=== PATIENT | female | born 1960 | race Caucasian/White ===

== ENCOUNTER 2019-05-26 10:06 | Emergency (ER) | payer OTHER, SELFPAY ==
[2019-05-26 10:46] VITALS: BP 148/81; PULSE 69; RESP 20; TEMP 37.6; O2SAT 100
--- NOTE | 2019-05-26 10:57 | ED.GENADULT ---
HPI - General Adult General Chief complaint: Eye Problems Stated complaint: L/eye injury Time Seen by Provider: 05/26/19 10:57 Source: patient and RN notes reviewed Mode of arrival: ambulatory Limitations: no limitations History of Present Illness HPI narrative: 58-year-old female presents with complaints of sensation of foreign body in left eye with redness, drainage, irritation, and blurred vision for 1 day. Nolvia says she was outside in the garden yesterday (approximately at 14:00 on 05/25/19) and believes she may have stuck herself in the eye with a stick. No treatment. No change in vision. Wears glasses. Symptoms increased over night with foreign body sensation and redness. No exacerbating factors. Relieving factors is closing eyes. Denies double vision, pain of eye with movement. Denies fever or chills. Some parts of this dictation were generated by voice recognition software and may contain typographical and/or grammatical inaccuracies. Severity scale (1-10): 9 Related Data Home Medications Medication Instructions Recorded Confirmed No Home Medications 05/26/19 05/26/19 Allergies Allergy/AdvReac Type Severity Reaction Status Date / Time No Known Allergies Allergy Verified 05/26/19 10:45 Review of Systems Review of Systems: Narrative: CONSTITUTIONAL: Denies fever, chills, sweats. EYES: Denies visual changes. Complains of LT eye redness and foreign body sensation. Denies discharge. ENT: Denies rhinorrhea, congestion, sore throat, otalgia. CARDIOVASCULAR: Denies chest pain, palpitations, edema. RESPIRATORY: Denies dyspnea, wheezing, cough. GASTROINTESTINAL: Denies abdominal pain, nausea, vomiting, diarrhea. GENITOURINARY: Denies dysuria, hematuria, abnormal discharge. SKIN: Denies rash or itching. MUSCULOSKELETAL: Denies acute back pain, joint pain, or myalgia. NEUROLOGIC: Denies numbness or focal weakness. PSYCHIATRIC: Denies anxiety or depression. All systems reviewed & are unremarkable except as noted in HPI and below. [facility] Past Medical History Medical History (Updated 05/27/19 @ 00:01 by Kolton Henley) Endometriosis Surgical History Surgical History (Updated 05/26/19 @ 11:04 by KARL Root) History of carpal tunnel surgery Left wrist History of exploratory laparotomy History of left salpingo-oophorectomy Family History Family History Father Hypertension Family history of heart disease in male family member before age 55 Mother Hypertension Family history of hypothyroidism Patient's mother is , Onset Age: 92 Sibling Hypertension Family history of elevated blood lipids Patient's sister is in good health Patient's brother is in good health Other Acute myocardial infarction Family history of cardiovascular disease Social History Social History (Updated 05/26/19 @ 11:04 by KARL Root) Smoking status: Never smoker Second hand tobacco smoke exposure: No Alcohol intake: current Substance use: never Living arrangements: with family Occupation/Education: occupation Gender identity (if verbalized by the patient): Female Comments At time of signature, I have reviewed and agree with nursing past medical, surgical, social, and family history. Please see nursing chart for further information. There is no relevant family history pertinent to the presenting complaint. Exam Narrative: Exam Narrative: GENERAL: This is a well-nourished, well-developed patient, in no apparent distress. HEAD: normocephalic, atraumatic. EYES: PERRL. Sclera clear/white to RT eye only. LT eye sclera roly and clear with clear watery drainage, no swelling, no tenderness on palpation or erythema. Vision is grossly intact. RT eye 20/20, LT 20/30 with glasses. No foreign body. Noted a corneal abrasion at 8 o'clock with topical anesthetic using Tetracaine and Fluorecein stain exam of
== END 2019-05-26 11:36 | disposition home or self-care (01) ==
PROVIDERS: Emergency Provider Nurse Practitioner Family; PCP Family Medicine
DX: S05.01XA Injury of conjunctiva and corneal abrasion without foreign body, right eye, initial encounter (principal); X58.XXXA Exposure to other specified factors, initial encounter
CPT/HCPCS: 99213; A9270; G0463

== ENCOUNTER 2019-06-10 08:43 | Outpatient (CLI) | payer OTHER, SELFPAY ==
[2019-06-10 09:22] LABS: Basophils Absolute Auto 0.1 K/mm3 (0.0-0.1); Basophils Percent Auto 0.9 % (0.2-1.2); Eosinophils Absolute Auto 0.2 K/mm3 (0-0.3); Eosinophils Percent Auto 3.7 % (0-4.4); Hematocrit 41.1 % (37.0-47.0); Hemoglobin 13.7 g/dL (12.0-15.0); Immature Granulocyte Absolute 0.01 K/mm3 (0.00-0.031); Immature Granulocyte Percent A 0.2 % (0-0.5); Lymphocytes Absolute Auto 2.36 K/mm3 (0.9-3.2); Lymphocytes Percent Auto 43.3 % (18.3-44.2); Mean Corpuscular HGB Conc 33.3 g/dl (32-36); Mean Corpuscular Hemoglobin 30.2 pg (26-34); Mean Corpuscular Volume 90.5 fl (80-100); Mean Platelet Volume 9.7 fl (7.4-10.4); Monocytes Absolute Auto 0.4 K/mm3 (0.1-0.6); Monocytes Percent Auto 7.7 % (2.6-8.5); Neutrophils Absolute Auto 2.4 K/mm3 (1.3-6.7); Neutrophils Percent Auto 44.2 % (45.5-73.1); Platelet Count Result 218 k/mm3 (150-375); Red Blood Count 4.54 M/mm3 (4.2-5.4); Red Cell Distribution Width 13.1 % (11.5-14.5); White Blood Count 5.5 K/mm3 (4.5-10.0)
[2019-06-10 09:34] LABS: Alanine Aminotransferase 25 U/L (4-35); Alkaline Phosphatase 77 U/L (38-126); Aspartate Amino Transferase 32 U/L (14-36); Bilirubin,Total 1.2 mg/dL (0.2-1.3); Blood Urea Nitrogen 13 mg/dL (7-17); Calcium 9.1 mg/dL (8.4-10.2); Carbon Dioxide 30 mmol/L (22-30); Chloride 104 mmol/L (98-107); Cholesterol 187 mg/dL (0-200); Estimated Glomerular Filt Rate > 60; Glucose 91 mg/dL (65-105); HDL Direct 54 mg/dL; Potassium 4.2 mmol/L (3.4-5.0); Sodium 141 mmol/L (137-145); Triglycerides 70 mg/dL (<150)
[2019-06-10 09:45] LABS: LDL Cholesterol Direct 106 mg/dL
== END 2019-06-10 08:44 | disposition home or self-care (01) ==
PROVIDERS: PCP Family Medicine; Visit Provider Family Medicine
DX: I10 Essential (primary) hypertension (principal); Z13.220 Encounter for screening for lipoid disorders
CPT/HCPCS: 36415; 80053; 80061; 85025

== ENCOUNTER 2019-07-02 08:50 | Outpatient (CLI) | payer OTHER, SELFPAY ==
--- NOTE | ~2019-07-02 | MM_ITS ---
EXAMINATION: MM screening kristie BI w mary HISTORY: Screening mammogram TECHNIQUE: Craniocaudal and mediolateral oblique 3-D tomosynthesis images were obtained and synthetic 2-D images were generated. CAD analysis was submitted and interpreted. COMPARISON: 03/21/2017, 06/10/2015 bilateral digital screening mammogram examinations BREAST PARENCHYMAL COMPOSITION: There are scattered areas of fibroglandular density. FINDINGS: There is no evidence of suspicious mass, calcification, or architectural distortion to sugg est malignancy in either breast. There has been no suspicious interval change. IMPRESSION: 1. No mammographic evidence of malignancy. 2. Recommend routine screening mammography in one year. BI-RADS Category 1: Negative Reviewed, dictated and finalized at location A.
== END 2019-07-02 08:51 | disposition home or self-care (01) ==
LOC: ANHIMG 08:53
PROVIDERS: PCP Family Medicine; Visit Provider Family Medicine
DX: Z12.31 Encounter for screening mammogram for malignant neoplasm of breast (principal)
CPT/HCPCS: 77063; 77067

== ENCOUNTER 2020-03-02 12:27 | Outpatient (CLI) | payer OTHER, SELFPAY ==
--- NOTE | ~2020-03-02 | DEXA_ITS ---
Bone Density Report Name: Nolvia Stone Age: 59 Sex: Female Ethnicity: White Date of : 1960 Indication: osteopenia; postmenopausal Referring Provider: José Luis, Aura Study: Bone densitometry was performed. Exam Date: March 02, 2020 Accession number: [id number] Bone Density: Region BMD T-score Z-score Classification AP Spine (L1-L4) 0.767 -2.5 -1.1 Osteoporosis Femoral Neck (Left) 0.558 -2.6 -1.3 Osteoporosis Total Hip (Left) 0.693 -2.0 -1.1 Osteopenia Total Hip Bilateral Avg 0.714 -1.9 -1.0 Osteopenia Femoral Neck (Right) 0.576 -2.5 -1.2 Osteoporosis Total Hip (Right) 0.733 -1.7 -0.8 Osteopenia World Health Organization criteria for BMD impression classify patients as: Normal (T-score at or above -1.0), Osteopenia (T-score between -1.0 and -2.5), or Osteoporosis (T-score at or below -2.5). 10-year Fracture Risk: FRAX not reported because: Some T-score for Spine Total or Hip Total or Femoral Neck at or below -2.5 Previous Exams: Region Exam Age BMD T-score BMD Change BMD Change Date g/cm2 vs Baseline vs Previous AP Spine(L1-L4) 03/02/2020 59 0.767 -2.5 -0.063(-7.6%)* -0.063(-7.6%)* 06/10/2015 54 0.830 -2.0 Total Hip(Left) 03/02/2020 59 0.693 -2.0 -0.011(-1.6%) -0.011(-1.6%) 06/10/2015 54 0.704 -1.9 Total Hip(Right) 03/02/2020 59 0.733 -1.7 0.037(5.3%)* 0.037(5.3%)* 06/10/2015 54 0.696 -2.0 *Denotes significance at 95% confidence level, LSC for AP Spine = 0.022 g/cm2, LSC for Total Hip = 0.027 g/cm2 Clinical Information Provided by Patient: Has used the following medications: Vitamin D, Calcium Patient maximum height was 67 Menopause Age: 51 Drinks caffeinated beverages Onset of menses at age 13 Number of children 0 Impression: The patient has osteoporosis, based on the Left Femoral Neck T-score. The BMD for the AP Spine(L1-L4) decreased, changing by -7.6% since the last DXA exam. Discussion: INCREASED RISK OF FRACTURE. BONE DENSITY IS UNDESIRABLY LOW AT ONE OR MORE SKELETAL SITES, CONSISTENT WITH POSTMENOPAUSAL OSTEOPOROSIS. This patient's lowest T-score meets the World Health Organization's (WHO) criteria for osteoporosis at one or more sites (T-score -2.5 or below). In untreated patients, the risk of osteoporotic fracture increases approximately two-fold for each 1.0 SD decrease in T-score. Low bone density is not the only risk factor for fracture; also consider factors such as patient's age, frailty
[2020-08-26 16:01] LABS: Urine Cotinine NEGATIVE
== END 2020-03-02 12:28 | disposition home or self-care (01) ==
LOC: ANHIMG 12:29
PROVIDERS: Visit Provider Nurse Practitioner
DX: Z13.820 Encounter for screening for osteoporosis (principal); M81.0 Age-related osteoporosis without current pathological fracture; M85.852 Other specified disorders of bone density and structure, left thigh
CPT/HCPCS: 77080

== ENCOUNTER 2021-06-04 07:29 | Outpatient (CLI) | payer OTHER, SELFPAY ==
[2021-06-04 08:39] LABS: Basophils Absolute Auto 0.1 K/mm3 (0.0-0.1); Basophils Percent Auto 1.3 % (0.2-1.2); Eosinophils Absolute Auto 0.2 K/mm3 (0-0.3); Eosinophils Percent Auto 4.2 % (0-4.4); Hematocrit 41.2 % (37.0-47.0); Hemoglobin 14.1 g/dL (12.0-15.0); Immature Granulocyte Absolute 0.01 K/mm3 (0.00-0.031); Immature Granulocyte Percent A 0.2 % (0-0.5); Lymphocytes Percent Auto 41.7 % (18.3-44.2); Mean Corpuscular HGB Conc 34.2 g/dl (32-36); Mean Corpuscular Hemoglobin 30.9 pg (26-34); Mean Corpuscular Volume 90.2 fl (80-100); Mean Platelet Volume 9.9 fl (7.4-10.4); Monocytes Absolute Auto 0.3 K/mm3 (0.1-0.6); Monocytes Percent Auto 6.5 % (2.6-8.5); Neutrophils Absolute Auto 2.2 K/mm3 (1.3-6.7); Neutrophils Percent Auto 46.1 % (45.5-73.1); Platelet Count Result 243 k/mm3 (150-375); Red Blood Count 4.57 M/mm3 (4.2-5.4); Red Cell Distribution Width 12.7 % (11.5-14.5); White Blood Count 4.8 K/mm3 (4.5-10.0)
[2021-06-04 08:52] LABS: Alanine Aminotransferase 29 U/L (4-35); Albumin Level 4.3 g/dL (3.5-5.1); Alkaline Phosphatase 83 U/L (38-126); Anion Gap 8 mmol/L (8-16); Aspartate Amino Transferase 37 U/L (14-36); Bilirubin,Total 1.1 mg/dL (0.2-1.3); Blood Urea Nitrogen 12 mg/dL (7-17); Calcium 8.8 mg/dL (8.4-10.2); Carbon Dioxide 25 mmol/L (22-30); Chloride 106 mmol/L (98-107); Cholesterol 220 mg/dL (0-200); Estimated Glomerular Filt Rate > 60; Glucose 98 mg/dL (65-110); HDL Direct 56 mg/dL; Potassium 3.8 mmol/L (3.4-5.0); Sodium 139 mmol/L (137-145); Triglycerides 79 mg/dL (<150)
[2021-06-04 09:02] LABS: LDL Cholesterol Direct 112 mg/dL
[2021-06-04 10:04] LABS: Hemoglobin A1C 5.2 % (<5.7)
== END 2021-06-04 07:30 | disposition home or self-care (01) ==
PROVIDERS: PCP Family Medicine; Visit Provider Nurse Practitioner Gerontology
DX: R03.0 Elevated blood-pressure reading, without diagnosis of hypertension (principal); Z00.01 Encounter for general adult medical examination with abnormal findings
CPT/HCPCS: 36415; 80053; 80061; 83036; 84443; 85025

== ENCOUNTER 2021-07-11 08:56 | Outpatient (CLI) | payer OTHER, SELFPAY ==
--- NOTE | ~2021-07-11 | MM_ITS ---
EXAMINATION: MM screening kristie BI w mary HISTORY: Screening mammogram TECHNIQUE: Craniocaudal and mediolateral oblique 3-D tomosynthesis images were obtained and synthetic 2-D images were generated. CAD analysis was submitted and interpreted. COMPARISON: No prior mammogram is available for comparison at this institution. BREAST PARENCHYMAL COMPOSITION: There are scattered areas of fibroglandular density. FINDINGS: There is no evidence of suspicious mass, calcification, or architectural distortion to sugg est malignancy in either breast. There has been no suspicious interval change. IMPRESSION: 1. No mammographic evidence of malignancy. 2. Recommend routine screening mammography in one year. BI-RADS Category 1: Negative Reviewed, dictated and finalized at location A.
== END 2021-07-11 08:57 | disposition home or self-care (01) ==
LOC: ANHIMG 08:57
PROVIDERS: PCP Family Medicine; Visit Provider Nurse Practitioner Gerontology
DX: Z12.31 Encounter for screening mammogram for malignant neoplasm of breast (principal)
CPT/HCPCS: 77063; 77067

== ENCOUNTER 2021-07-21 15:51 | Outpatient (CLI) | payer OTHER, SELFPAY ==
[2021-07-21 18:39] LABS: Alanine Aminotransferase 26 U/L (4-35); Aspartate Amino Transferase 48 U/L (14-36)
== END 2021-07-21 15:52 | disposition home or self-care (01) ==
LOC: ANHLAB 15:52
PROVIDERS: PCP Family Medicine; Visit Provider Nurse Practitioner Gerontology
DX: R74.8 Abnormal levels of other serum enzymes (principal)
CPT/HCPCS: 36415; 84450; 84460

== ENCOUNTER 2021-08-02 16:37 | Outpatient (CLI) | payer OTHER, SELFPAY ==
[2021-08-02 17:08] LABS: Alanine Aminotransferase 23 U/L (6-35); Albumin Level 4.2 g/dL (3.5-5.1); Alkaline Phosphatase 86 U/L (38-126); Aspartate Amino Transferase 35 U/L (14-36); Bilirubin,Total 1.2 mg/dL (0.2-1.3)
[2021-08-02 18:52] LABS: Hepatitis B Surface Antigen Negative (Negative)
[2021-08-02 18:58] LABS: HAV RESULT Negative (Negative); Hepatitis B Core IgM Result Negative (Negative)
[2021-08-02 19:09] LABS: Hepatitis C Virus Antibody Negative (Negative)
== END 2021-08-02 16:38 | disposition home or self-care (01) ==
LOC: ANHLAB 16:38
PROVIDERS: PCP Family Medicine; Visit Provider Nurse Practitioner Gerontology
DX: R74.8 Abnormal levels of other serum enzymes (principal)
CPT/HCPCS: 36415; 80074; 80076

== ENCOUNTER 2021-11-21 10:58 | Outpatient (CLI) | payer OTHER, SELFPAY ==
--- NOTE | ~2021-11-21 | XR_ITS ---
EXAM: XR lumbar spine min 4V DATE: 11/21/2021 11:26 HISTORY: M47.816 - Spondylosis without myelopathy or radiculopathy... . COMPARISON: None available. FINDINGS: Hypoplastic ribs at T12. 5 nonrib-bearing lumbar-type vertebral bodies. Decreased mineraliz ation. No pars defect. Pedicles intact. Normal vertebral body alignment. Mild concave endplate deform ities. Multilevel disc space narrowing, severe at L4-5 and L5-S1. Multilevel mild-moderate facet scle rosis and hypertrophy. No fracture or dislocation. IMPRESSION: Osteopenia/osteoporosis. Multilevel degenerative disc disease, severe in the lower lumbar spine. Reviewed, dictated and finalized at location K. IMPRESSION: Osteopenia/osteoporosis. Multilevel degenerative disc disease, ravinder re in the lower lumbar spine.
== END 2021-11-21 10:59 | disposition home or self-care (01) ==
PROVIDERS: PCP Family Medicine; Visit Provider Nurse Practitioner Gerontology
DX: M47.816 Spondylosis without myelopathy or radiculopathy, lumbar region (principal); M85.88 Other specified disorders of bone density and structure, other site; M81.0 Age-related osteoporosis without current pathological fracture; M51.36 Other intervertebral disc degeneration, lumbar region
CPT/HCPCS: 72110

== ENCOUNTER 2021-12-25 12:19 | Outpatient (CLI) | payer OTHER, SELFPAY ==
--- NOTE | ~2021-12-25 | MR_ITS ---
EXAMINATION: MR lumbar spine wo con DATE: 12/25/2021 13:12 INDICATION: Back pain. Leg numbness. TECHNIQUE: Magnetic resonance imaging (MRI) of the lumbar spine was performed without intravenous con trast. Sequences included sagittal T2-weighted FSE, sagittal T2-weighted FS FSE, sagittal T1-weighted FSE, and axial T2-weighted FSE. COMPARISON: Lumbar spine MRI 12/23/2017 FINDINGS: There is 11 degrees dextroscoliosis of lumbar spine. Vertebral body heights are normal. The re is moderately decreased disc height at T12-L1, mildly decreased disc height at L1-L2 and L2-L3, an d severely decreased disc height from L3-L4 through L5-S1 with endplate remodeling. The distal spinal cord signal intensity is normal. The conus medullaris is at L1. Partially visualized is a cyst in ri ght adnexa measuring 4.7 cm. The following disc levels are specifically discussed: T12-L1: The disc is bulging. There is no facet joint osteoarthritis. There is no neural foraminal dahiana nosis. There is mild central canal stenosis. L1-L2: The disc is bulging and has an annular fissure. There is mild bilateral facet joint osteoarthr itis. There is no neural foraminal stenosis. There is mild central canal stenosis. L2-L3: The disc is bulging and has an annular fissure. There is mild bilateral facet joint osteoarthr itis. There is mild bilateral neural foraminal stenosis. There is mild central canal stenosis. L3-L4: The disc is bulging and has an annular fissure. There is mild bilateral facet joint osteoarthr itis. There is mild bilateral neural foraminal stenosis. There is mild central canal stenosis. L4-L5: The disc is bulging and has an annular fissure. There is severe bilateral facet joint osteoart hritis. There is mild right and moderate left neural foraminal stenosis. There is mild central canal stenosis. L5-S1: The disc is bulging and has an annular fissure. There is mild bilateral facet joint osteoarthr itis. There is moderate right and mild left neural foraminal stenosis. There is mild central canal st enosis. IMPRESSION: 1. Severe lumbar spondylosis, stable from 12/23/2017. 2. Partially visualized cyst in right adnexa measuring 4.7 cm, probably benign. Pelvis ultrasound is recommended. Reviewed, dictated and finalized at location B.
== END 2021-12-25 12:20 | disposition home or self-care (01) ==
PROVIDERS: PCP Family Medicine; Visit Provider Nurse Practitioner Gerontology
DX: M47.816 Spondylosis without myelopathy or radiculopathy, lumbar region (principal)
CPT/HCPCS: 72148

== ENCOUNTER 2022-02-02 12:30 | Outpatient (RCR) | payer OTHER, SELFPAY ==
--- NOTE | 2022-01-03 10:47 | PTOPEVAL1 ---
Assessment and note entered by Shirlene Julien, PT Evaluation Information Assessment Status Evaluation Diagnosis chronic back pain, current L radiculopathy Onset 08/2021 Subjective Information was doing really well with going to gym after addressing low back in 2015, with jer was unable to go to the gym. Recently did steroids and this didn't seem to change anything. Has started neurontin. Reported Pain Level Pain Score 5: Self Report Assessment PT Clinical Summary Pt presents w/ c/o back pain and pain into LLE. Chart review shows hx of L5 disc issue pt reports did steroid shots, medication, and therapy for this and was able to get pain to a tolerable level. Was able to maintain this level of function via working out independently. Reports with Jer , gyms shut down and she was unable to maintain her regement. Notes pain worsened most over the last 4 months. Evaluation shows very ataxic gait with path weaving, bilat foot drop, inconsistent bubba. Also shows severely decreased lumbar flexion, moderate scoliosis with left lateral shift, R pelvic upslip (severe), severely reduced strength in lumbopelvic musculature including glute med, max, internal and external rotators, and transverse abdominal muscles. Pt will benefit from physical therapy to address alignment of pelvis, provide improved foundation for lumbar spine, improve strength of core musculature and thus improve stability of lumbar spine, reducing pain and improving function without pain. Plan of Care Interventions Aquatic Therapy,Electrical Stimulation,Gait Training,Hot Pack/Cold Pack,Manual Therapy,Neuro Re-education,Therapeutic Activities,Therapeutic Exercise,Other Other Interventions Bracing PT Services Indicated Yes Treatment Frequency and 1-2x weekly x 4 weeks Duration These treatments will address the objective and functional deficits as defined above. The patient will be advanced safely and appropriately in order for the patient to progress towards his/her prior level of function. Additional exercises will be introduced and as well as a comprehensive home exercise program upon discharge, if needed, ?to ensure carryover of functional gains achieved in the clinic. This treatment plan has been reviewed and agreement upon by the patient.
--- NOTE | 2022-02-02 13:21 | PTOPDC ---
Assessment and note entered by Shirlene Julien, PT Assessment Status Discharge Diagnosis chronic back pain, current L radiculopathy Onset 08/2021 Subjective Information Pt reports she has spoken with someone about receiving steroid shots for her back pain in approx a month. Her pain she presented to therapy for has not improved much. Reported Pain Level Pain Score 5: Self Report Assessment PT Clinical Summary Pt has attended therapy consistently for back pain and radicular symptoms. She has made improvement in her overall strength, her lumbar flexion range of motion, and improved coordination with gait. However she has not improved in her pain to a significant degree. She continues to demonstrate a pelvic upslip that has not responded to therapeutic intervention and has made an appointment to receive steroid shots. Unfortunately, pt is being discharged from therapy services due to lack of progress in her pain.
== END 2022-02-02 15:19 | disposition home or self-care (01) ==
LOC: ANHPT 12:30
PROVIDERS: PCP Family Medicine; Visit Provider Nurse Practitioner Gerontology
DX: M47.816 Spondylosis without myelopathy or radiculopathy, lumbar region (principal)
CPT/HCPCS: 97014; 97110; 97140; 97162; 97530; G0283

== ENCOUNTER 2022-03-09 16:44 | Outpatient (CLI) | payer OTHER, SELFPAY ==
--- NOTE | ~2022-03-09 | DEXA_ITS ---
Bone Density Report Name: SHYAM IRIZARRY Age: 61 Sex: Female Ethnicity: White Date of : 1960 Indication: postmenopausal; screening for osteoporosis; height loss; Referring Provider: ROWDY CRUZ Study: Bone densitometry was performed. Exam Date: March 09, 2022 Accession number: [id number] Bone Density: Region BMD T-score Z-score Classification AP Spine(L1-L4) 0.850 -1.8 -0.2 Osteopenia Femoral Neck (Left) 0.546 -2.7 -1.3 Osteoporosis Total Hip (Left) 0.663 -2.3 -1.2 Osteopenia Femoral Neck (Right) 0.553 -2.7 -1.3 Osteoporosis Total Hip (Right) 0.676 -2.2 -1.1 Osteopenia Total Hip Mean 0.669 -2.3 -1.2 Osteopenia World Health Organization criteria for BMD impression classify patients as: Normal (T-score at or above -1.0), Osteopenia (T-score between -1.0 and -2.5), or Osteoporosis (T-score at or below -2.5). 10-year Fracture Risk: FRAX not reported because: Some T-score for Spine Total or Hip Total or Femoral Neck at or below -2.5 Clinical Information Provided by Patient: Has used the following medications: Vitamin D, Calcium Patient maximum height was 67 Menopause Age: 51 No regular weight bearing exercise Drinks caffeinated beverages Onset of menses at age 13 Number of children 0 Impression: The patient has osteoporosis, based on the Left Femoral Neck T-score. Discussion: INCREASED RISK OF FRACTURE. BONE DENSITY IS UNDESIRABLY LOW AT ONE OR MORE SKELETAL SITES, CONSISTENT WITH POSTMENOPAUSAL OSTEOPOROSIS. This patient's lowest T-score meets the World Health Organization's (WHO) criteria for osteoporosis at one or more sites (T-score -2.5 or below). In untreated patients, the risk of osteoporotic fracture increases approximately two-fold for each 1.0 SD decrease in T-score. Low bone density is not the only risk factor for fracture; also consider factors such as patient's age, frailty or poor health, risk of falling, risk of injury, previous osteoporotic fracture, family history of osteoporosis, cigarette smoking, low body weight, etc. Not everyone with low bone mineral density has osteoporosis; osteomalacia and other metabolic bone disorders should also be considered. Patients who have osteoporosis should be evaluated for specific diseases and conditions (secondary causes) that may cause or contribute to bone loss. The [place] [employer]ocrinologists (AACE) and National Osteoporosis Foundation (NOF) recommend pharmacologic intervention for all postmenopausal women whose T-score is in this range. The patient should follow a healthful lifestyle (good nutrition with adequate calcium and vitamin D, and appropriate weight-bearing exercise). Follow-Up: Consider a repeat BMD and Vertebral Fracture Assessment (VFA) exam in 2 years or sooner if medically necess
== END 2022-03-09 16:45 | disposition home or self-care (01) ==
PROVIDERS: PCP Family Medicine; Visit Provider Nurse Practitioner Gerontology
DX: Z78.0 Asymptomatic menopausal state (principal); M85.89 Other specified disorders of bone density and structure, multiple sites; M81.0 Age-related osteoporosis without current pathological fracture
CPT/HCPCS: 77080

== ENCOUNTER 2022-08-08 08:23 | Outpatient (CLI) | payer OTHER, SELFPAY ==
[2022-08-08 09:12] LABS: Basophils Absolute Auto 0.1 K/mm3 (0.0-0.1); Basophils Percent Auto 0.9 % (0.2-1.2); Eosinophils Absolute Auto 0.1 K/mm3 (0-0.3); Eosinophils Percent Auto 2.6 % (0-4.4); Hemoglobin 14.4 g/dL (12.0-15.0); Immature Granulocyte Absolute 0.01 K/mm3 (0.00-0.031); Immature Granulocyte Percent A 0.2 % (0-0.5); Lymphocytes Absolute Auto 1.72 K/mm3 (0.9-3.2); Lymphocytes Percent Auto 31.4 % (18.3-44.2); Mean Corpuscular HGB Conc 32.7 g/dl (32-36); Mean Corpuscular Hemoglobin 30.5 pg (26-34); Mean Corpuscular Volume 93.2 fl (80-100); Mean Platelet Volume 9.9 fl (7.4-10.4); Monocytes Absolute Auto 0.4 K/mm3 (0.1-0.6); Monocytes Percent Auto 6.6 % (2.6-8.5); Neutrophils Absolute Auto 3.2 K/mm3 (1.3-6.7); Neutrophils Percent Auto 58.3 % (45.5-73.1); Platelet Count Result 244 k/mm3 (150-375); Red Blood Count 4.72 M/mm3 (4.2-5.4); White Blood Count 5.5 K/mm3 (4.5-10.0)
[2022-08-08 09:21] LABS: Alanine Aminotransferase 27 U/L (6-35); Albumin Level 4.4 g/dL (3.5-5.1); Alkaline Phosphatase 87 U/L (38-126); Anion Gap 4 mmol/L (8-16); Aspartate Amino Transferase 33 U/L (14-36); Bilirubin,Total 1.3 mg/dL (0.2-1.3); Blood Urea Nitrogen 11 mg/dL (7-17); Calcium 8.9 mg/dL (8.4-10.2); Carbon Dioxide 33 mmol/L (22-30); Chloride 103 mmol/L (98-107); Cholesterol 225 mg/dL (0-200); Estimated Glomerular Filt Rate > 60; Glucose 88 mg/dL (65-110); HDL Direct 71 mg/dL; Potassium 4.1 mmol/L (3.4-5.0); Sodium 140 mmol/L (137-145); Triglycerides 64 mg/dL (<150)
[2022-08-08 09:32] LABS: LDL Cholesterol Direct 121 mg/dL
[2022-08-12 11:05] LABS: Vitamin D 1,25 (OH)2 Total 48 pg/mL (18-72); Vitamin D2 1,25 (OH)2 <8 pg/mL; Vitamin D3 1,25 (OH)2 48 pg/mL
== END 2022-08-08 08:24 | disposition home or self-care (01) ==
LOC: ANHLAB 08:24
PROVIDERS: PCP Family Medicine; Visit Provider Nurse Practitioner Gerontology
DX: Z00.01 Encounter for general adult medical examination with abnormal findings (principal); E55.9 Vitamin D deficiency, unspecified
CPT/HCPCS: 36415; 80053; 80061; 82652; 85025

== ENCOUNTER 2022-09-12 15:08 | Outpatient (CLI) | payer OTHER, SELFPAY ==
--- NOTE | 2022-09-12 15:15 | ECHO_ITS ---
Patient Info Name: Nolvia Stone Age: 61 years : 1960 Gender: Female Ht: 66 in Wt: 135 lbs BSA: 1.69 m2 HR: 75 bpm BP: 150 / 96 mmHg Heart Rhythm: Sinus Rhythm Technical Quality: Good Exam Date: 09/12/2022 3:36 PM Exam Location: [facility] Pulmonary Patient Status: Outpatient Admit Date: 09/12/2022 Staff Ordering Physician: Smitha Rebollar NP Attending Provider: Smitha Rebollar NP Referring Physician: Smooth MCLAIN; Exam Type: CA echo doppler color flow Study Info Complete two-dimensional, color flow and Doppler transthoracic echocardiogram is performed. Summary 1. Complete two-dimensional, color flow and Doppler transthoracic echocardiogram is performed. 2. Left ventricular chamber dimension is normal. 3. Left ventricular systolic function is normal, estimated at 60-65%. 4. The left ventricular diastolic function is grade I diastolic dysfunction. 5. E/e' 8 is minimally elevated. 6. No pulmonary hypertension, estimated pulmonary arterial systolic pressure is 14 mmHg. Left Ventricle E/e' 8 is minimally elevated. Left ventricular chamber dimension is normal. Left ventricular systolic function is normal, estimated at 60-65%. The left ventricular diastolic function is grade I diastolic dysfunction. Right Ventricle Right ventricular chamber dimension is normal. Right ventricular systolic function is normal. Left Atria Left atrial chamber dimension is normal. Right Atria Right atrial chamber dimension is normal. Aortic Valve The aortic valve is trileaflet. There is no aortic valve stenosis. There is no aortic valve regurgitation. Pulmonic Valve There is no pulmonic regurgitation. Mitral Valve There is no mitral valve stenosis. There is no mitral valve regurgitation. Tricuspid Valve There is no tricuspid valve regurgitation. No pulmonary hypertension, estimated pulmonary arterial systolic pressure is 14 mmHg. Pericardium/Pleural There is no pericardial effusion. Inferior Vena Cava Normal inferior vena cava with >50% collapse upon inspiration consistent with normal right atrial pressure, 5 mmHg. Aorta The aortic root size at the sinus of Valsalva is normal. Left Ventricular Outflow Tract Name Value Normal LVOT 2D LVOT Diameter 2.0 cm LVOT Doppler LVOT Peak Gradient 3 mmHg LVOT Mean Gradient 1 mmHg LVOT VTI 18 cm LVOT VTI/AV VTI Ratio 1.0 LVOT Stroke Volume 56 ml LVOT CO 3.5 l/min LVOT CI 2.1 l/min/m2 Pulmonic Valve Name Value Normal RVOT Doppler RVOT Peak Gradient 0 mmHg PV Doppler PV Peak Gradient 2 mmHg Mitral Valve
== END 2022-09-12 15:09 | disposition home or self-care (01) ==
LOC: ANHCARD 15:09
PROVIDERS: PCP Family Medicine; Visit Provider Nurse Practitioner Gerontology
DX: R01.1 Cardiac murmur, unspecified (principal)
CPT/HCPCS: 93306

== ENCOUNTER 2022-09-20 15:06 | Outpatient (CLI) | payer OTHER, SELFPAY ==
--- NOTE | ~2022-09-20 | XR_ITS ---
EXAM: XR lumbar spine min 4V DATE: 09/20/2022 15:30 HISTORY: BACK PAIN, AP LAT FLEX EXT STANDING . COMPARISON: 11/21/2021. FINDINGS: Lumbar scoliosis. Decreased mineralization, with endplate concavities as can be seen with o steoporosis. 5 nonrib-bearing lumbar-type vertebral bodies. Pedicles intact. Normal vertebral body al ignment. Vertebral body heights preserved. Mild disc space narrowing at L3-4. Severe disc space narro wing and vacuum phenomenon at L4-5 and L5-S1. Facet hypertrophy and sclerosis, mild at L4-5 and moder ate at L5-S1. No fracture or dislocation. IMPRESSION: Lumbar scoliosis. Multilevel lumbar degenerative disc disease, severe at L4-5 and L5-S1. Lower lumbar facet arthropathy. No dynamic listhesis detected. Reviewed, dictated and finalized at location K. IMPRESSION: Lumbar scoliosis. Multilevel lumbar degenerative disc disease, ravinder re at L4-5 and L5-S1. Lower lumbar facet arthropathy. No dynamic listhesis dete cted.
== END 2022-09-20 15:07 | disposition home or self-care (01) ==
PROVIDERS: PCP Family Medicine; Visit Provider Neurological Surgery
DX: M54.9 Dorsalgia, unspecified (principal); M41.86 Other forms of scoliosis, lumbar region; M51.36 Other intervertebral disc degeneration, lumbar region
CPT/HCPCS: 72110

== ENCOUNTER 2022-11-03 10:24 | Outpatient (CLI) | payer OTHER, SELFPAY ==
--- NOTE | 2022-11-03 10:32 | ECG_ITS ---
Measurements Intervals [place] Rate: 61 P: 72 FL: 150 QRS: 58 QRSD: 78 T: 55 QT: 400 QTc: 403 Interpretive Statements SINUS RHYTHM NO PREVIOUS ECG AVAILABLE FOR COMPARISON Electronically Signed On 11-03-2022 14:26:39 CDT by María Chu M.D.
[2022-11-03 11:01] LABS: Hematocrit 42.1 % (37.0-47.0); Hemoglobin 13.9 g/dL (12.0-15.0); Mean Corpuscular Hemoglobin 30.6 pg (26-34); Mean Corpuscular Volume 92.7 fl (80-100); Mean Platelet Volume 9.5 fl (7.4-10.4); Platelet Count Result 250 k/mm3 (150-375); Red Blood Count 4.54 M/mm3 (4.2-5.4); Red Cell Distribution Width 13.2 % (11.5-14.5); White Blood Count 5.6 K/mm3 (4.5-10.0)
[2022-11-03 11:08] LABS: Appearance Urine Cloudy (Clear); Bacteria Urine None Seen /hpf; Bilirubin Urine Negative (Negative); Blood Urine Negative (Negative); Color Urine Yellow (Yellow); Glucose Urine UA Negative (Negative); Ketones Urine Negative (Negative); Leukocyte Esterase Ur Negative LEU/UL (Negative); Nitrate Urine Negative (Negative); Non Pathogenic Casts 0-2; Protein Urine Negative (Negative); RBC Urine 0-2 /hpf (0-2); Specific Grav Ur 1.014 (1.001-1.035); Squamous Epithelial Cell Urine None seen /hpf (Few); Urobilinogen Urine 0.2 mg/dL (<2.0); WBC Urine 0-5 /hpf; pH Urine 7.5 (5.0-9.0)
[2022-11-03 11:10] LABS: Anion Gap 6 mmol/L (8-16); Blood Urea Nitrogen 11 mg/dL (7-17); Calcium 8.9 mg/dL (8.4-10.2); Carbon Dioxide 27 mmol/L (22-30); Chloride 101 mmol/L (98-107); Estimated Glomerular Filt Rate > 60; Glucose 63 mg/dL (65-110); Potassium 3.3 mmol/L (3.4-5.0); Sodium 134 mmol/L (137-145)
[2022-11-03 11:13] LABS: Partial Thromboplastin Time 28.9 SECONDS (22.3-36.8)
[2022-11-03 11:25] LABS: Add Urine Microscopic? YES
== END 2022-11-03 10:25 | disposition home or self-care (01) ==
LOC: ANHSURGERY 10:28
PROVIDERS: PCP Family Medicine; Visit Provider Neurological Surgery
DX: Z01.818 Encounter for other preprocedural examination (principal); I10 Essential (primary) hypertension; M47.816 Spondylosis without myelopathy or radiculopathy, lumbar region; I49.8 Other specified cardiac arrhythmias
CPT/HCPCS: 36415; 80048; 81001; 85027; 85610; 85730; 93005

== ENCOUNTER 2022-11-10 00:22 | Day surgery (SDC) | payer OTHER, SELFPAY ==
[2022-10-30 08:15] VITALS: BMI 22.2
--- NOTE | 2022-10-30 08:29 | PC.NURSE ---
Report to the Outpatient Waiting Room, entrance under the green pavilion located off [facility], at time 0630 __ on date _11/10/22 _. Planned Procedure Time: _0830 __. Time changes happen often and if your time is changed the preop area will call you the afternoon before. - You and your visitor will be asked to self-screen and do not enter if you have any COVID symptoms. - A mask is optional within the hospital at this time. Patients may have clear liquids (water, carbonated beverages, clear teas, apple juice) until 3 hours prior to surgery with a maximum of 20 ounces. - No food from midnight until time of surgery - Infants may have breast milk until 4 hours before surgery, formula 6 hours prior to surgery. - Children will be allowed to drink immediately following surgery. If applicable, please bring a bottle or sippy cup to assist with drinking. Juice, water, soda, and popsicles are readily available. For infants on formula, please bring formula the day of surgery. Pacifiers are allowed. Take the following medications with a SIP of water the morning of surgery: ____NONE DO NOT STOP ANY OF YOUR OTHER PRESCRIPTION MEDICATIONS PRIOR TO SURGERY ?EXCEPT THE FOLLOWING Medications to discontinue per physician IBUPROFEN, VITAMINS AND SUPPLIMENTS Date to take last dose 7 DAYS PER SURGEON Please no make-up, nail chadian, hairspray, perfume, deodorant, or body powder the day of surgery. No jewelry (including any body piercings) or valuables the day of surgery, leave them at home. Please take a shower or bath the night before, or the morning of, surgery with an antibacterial soap. Wear comfortable, loose fitting clothing. Children are encouraged to wear pajamas. - Jewelry must be removed prior to entering the operating room. Rings and piercings that are not removed may be cut off. - The hospital will not accept responsibility for valuables. - Please leave all valuables, including medications, at home the day of surgery. If you are going home after surgery, a licensed sales driver must drive you home. - NO public transportation without another adult if you receive anesthesia. - We recommend that an adult stay with you for 24 hours following discharge. - We also recommend that you do not drive, make important decision, drink alcoholic beverages, or take any drugs that were not prescribed by your health care provider for at least 24 hours after your discharge time. For Pediatric surgeries, we recommend two adults accompany the child home. Follow any additional instructions given to you from your surgeon. If you or anyone in your household have experienced Covid symptoms in the past week, please notify your surgeon or the nurse liaison at the phone number below for possible testing. Telephone instructions given to PATIENT and asked if any additional questions and then verbalized understanding. Patient advised to call surgeon office or pre surgery nurse liaison [phone] if any additional questions.
--- NOTE | 2022-11-09 14:19 | WPDANESEPPF ---
Anes - Initial Pre Proc Eval Procedure: Operation Date: 11/10/22 07:30 Proposed Procedures p L4-5, L5-S1 Left Lumbar Decompression - Siobhan Gonzáles MD Date/Time: 11/09/22 14:19 Surgeon: Siobhan Gonzáles MD Pre Op Diagnosis: back pain Patient Data Age: 62 Gender: F Height: 1.68 m Weight: 62.5 kg Allergies Allergy/AdvReac Type Severity Reaction Status Date / Time No Known Allergies Allergy Verified 11/10/22 06:52 Home Medications Medication Instructions Recorded Confirmed Type ascorbate calcium (vitamin C) 500 500 mg PO DAILY 06/05/19 11/10/22 History mg tablet calcium carbonate 500 mg calcium 1,500 mg PO DAILY 06/05/19 11/10/22 History (1,250 mg) tablet (Calcium 500) cholecalciferol (vitamin D3) 50 50 mcg PO DAILY 06/05/19 11/10/22 History mcg (2,000 unit) capsule omega 0-mrs-qjw-fish oil 1,000 mg 1 cap PO DAILY 06/05/19 11/10/22 History (120 mg-180 mg) capsule (Fish Oil) calcitonin (salmon) 200 1 spray intranasal (ALT) DAILY 10/17/22 11/10/22 Rx unit/actuation nasal spray #3.7 mL gabapentin 100 mg capsule 200 mg PO QHS #180 caps 10/17/22 11/10/22 Rx lisinopril 10 mg tablet 10 mg PO DAILY #30 tabs 10/17/22 11/10/22 Rx ibuprofen 400 mg tablet 400 mg PO HS 10/30/22 11/10/22 History Patient hx anesthesia problems: none Family hx anesthesia problems: none Results Review: All pre-operative results and documents have been reviewed as part of the pre-operative evaluation. [facility] Past Medical History Medical History Endometriosis Lumbar spondylosis Surgical History Surgical History History of carpal tunnel surgery Left wrist History of exploratory laparotomy History of left salpingo-oophorectomy Family History Family History Father Hypertension Family history of heart disease in male family member before age 55 Mother Hypertension Family history of hypothyroidism Patient's mother is , Onset Age: 92 Sibling Hypertension Family history of elevated blood lipids Patient's sister is in good health Patient's brother is in good health Diabetes mellitus Family history of cardiovascular disease Other Acute myocardial infarction Social History Social History (Updated 10/17/22 @ 09:11 by Smitha Adair) Social History: Smoking status: Never smoker Second hand tobacco smoke exposure: No Alcohol intake: current Drinks per week: 1 Alcohol use details: Occasionally Substance use: never Substance use type: does not use Lack of Transportation: No Lack of Food: Never True Current Housing: I Have Housing Concerned About Future Housing: No Difficulty Paying Gas/Electric Bills: No Difficulty Paying for Meds: No Currently Unemployed: No Education: Decline to Answer Difficulty w/ Childcare or Family Care: No Living arrangements: with family Occupation/Education: occupation Gender identity (if verbalized by the patient): Female Sexual Orientation (if Verbalized by the Patient): Straight or Heterosexual Anes - Eval Final PreProcedure Day of Procedure 11/09/22 14:19 Patient weight: normal Heart: regular rate and rhythm Lungs: clear to auscultation Airway: Mallampati scale class II Neurological: alert and oriented Last oral intake: >/= 8 hours ASA classification: II Emergent: no Anesthetic plan: proceed Anesthesia type and monitoring: general ETT and standard monitoring Results Review: All pre-operative results and documents have been reviewed as part of the pre-operative evaluation. Informed Consent: The patient's anesthetic plan and its attendant risks and benefits were discussed with the patient/family/POA. Questions were solicited and answers provided to the satisfaction of the patient/family/POA.
[2022-11-10] VITALS (13 sets, daily range): BP systolic 129–172; BP diastolic 70–86; PULSE 54–81; RESP 12–18; TEMP 36.1–36.2; O2SAT 97–100
--- NOTE | ~2022-11-10 | XR_ITS ---
EXAMINATION: XR fluoroscopy no charge DATE: 11/10/2022 09:38 INDICATION: Lumbar decompression TECHNIQUE: 2 fluoroscopic images of the lumbosacral junction were obtained during procedure performed by Dr. Gonzáles. Radiologist was not present for the imaging or procedure. The amount of fluoroscopy ti me used during this procedure was 0.1 minutes. COMPARISON: Lumbar spine radiographs dated 09/20/2022 FINDINGS: Moderate lower lumbar spondylosis with moderate disc height loss at L4-L5 and L5-S1 and mild disc hei ght loss at L3-L4. Surgical instrumentation projects over the posterior elements and soft tissues at the lower lumbar spine. IMPRESSION: 1. Fluoroscopy utilized during neurosurgical procedure at the lower lumbar spine. See procedure note for further detail. Reviewed, dictated and finalized at location A. IMPRESSION: 1. Fluoroscopy utilized during neurosurgical procedure at the lower lumbar spin e. See procedure note for further detail.
[2022-11-10] MEDS: LACTATED RINGERS 1,000 ML 30 ML IV CONT ×2 (06:20→09:30)
--- NOTE | 2022-11-10 07:32 | PM.IMHP ---
H&P: HPI History of Present Illness Date/Time: 11/10/22 07:32 Chief Complaint: Patient is a 61 year old female who presents with low back and left lower extremity pain and sensory change in the setting of lumbar spondylosis with lateral recess and neuroforaminal stenosis. She has had temporary but not lasting relief with non surgical measures including PT and FADUMO. She presents for lumbar decompression at L4-5 and L5-S1 on the left. [facility] Past Medical History Medical History Endometriosis Lumbar spondylosis Surgical History Surgical History History of carpal tunnel surgery Left wrist History of exploratory laparotomy History of left salpingo-oophorectomy Family History Family History Father Hypertension Family history of heart disease in male family member before age 55 Mother Hypertension Family history of hypothyroidism Patient's mother is , Onset Age: 92 Sibling Hypertension Family history of elevated blood lipids Patient's sister is in good health Patient's brother is in good health Diabetes mellitus Family history of cardiovascular disease Other Acute myocardial infarction Social History Social History (Updated 10/17/22 @ 09:11 by Smitha Adair) Social History: Smoking status: Never smoker Second hand tobacco smoke exposure: No Alcohol intake: current Drinks per week: 1 Alcohol use details: Occasionally Substance use: never Substance use type: does not use Lack of Transportation: No Lack of Food: Never True Current Housing: I Have Housing Concerned About Future Housing: No Difficulty Paying Gas/Electric Bills: No Difficulty Paying for Meds: No Currently Unemployed: No Education: Decline to Answer Difficulty w/ Childcare or Family Care: No Living arrangements: with family Occupation/Education: occupation Gender identity (if verbalized by the patient): Female Sexual Orientation (if Verbalized by the Patient): Straight or Heterosexual Meds Home Medications and Allergies Home Medications Medication Instructions Recorded Confirmed Type ascorbate calcium (vitamin C) 500 500 mg PO DAILY 06/05/19 11/10/22 History mg tablet calcium carbonate 500 mg calcium 1,500 mg PO DAILY 06/05/19 11/10/22 History (1,250 mg) tablet (Calcium 500) cholecalciferol (vitamin D3) 50 50 mcg PO DAILY 06/05/19 11/10/22 History mcg (2,000 unit) capsule omega 4-bdo-ysl-fish oil 1,000 mg 1 cap PO DAILY 06/05/19 11/10/22 History (120 mg-180 mg) capsule (Fish Oil) calcitonin (salmon) 200 1 spray intranasal (ALT) DAILY 10/17/22 11/10/22 Rx unit/actuation nasal spray #3.7 mL gabapentin 100 mg capsule 200 mg PO QHS #180 caps 10/17/22 11/10/22 Rx lisinopril 10 mg tablet 10 mg PO DAILY #30 tabs 10/17/22 11/10/22 Rx ibuprofen 400 mg tablet 400 mg PO HS 10/30/22 11/10/22 History Allergies Allergy/AdvReac Type Severity Reaction Status Date / Time No Known Allergies Allergy Verified 11/10/22 06:52 Vital Signs Vital Signs - 24 hr 11/10/22 06:16 Temperature 97.0 F L Pulse Rate 66 Respiratory Rate 18 Blood Pressure 151/79 H Pulse Oximetry 100 Oxygen Delivery Room Air Exam Narrative: Awake, alert oriented x 3 Speech CF KEVAN EOMI Face= TML MAEW with good strength Assessment and Plan Assessment and plan (1) Lumbar spondylosis: Code(s): M47.816 - Spondylosis without myelopathy or radiculopathy, lumbar region Status: Acute Plan Patient presents for lumbar decompression at L45 and L5-S1. We have discussed the risks, indications and recovery from surgery in detail in the office. Plan is for outpatient surgery barring any issues with surgery
--- NOTE | 2022-11-10 07:41 | WPDHPUPDATE1 ---
History and Physical Update Update Date/Time: 11/10/22 07:41 History and Physical has been reviewed, including an updated exam of the patient. There are NO changes in the patient's condition. Risks, benefits, and alternatives have been discussed and questions answered. Patient agrees to proceed with procedure.
[2022-11-10] MEDS: ceFAZolin 2 GM/D5W 50 ML 2 GM/50 ML BAG IVPB (08:09)
[2022-11-10] MEDS: LIDO 1%/EPINEPHRINE 1:100,000 20 ML VIAL 10 ML INFILTRATE (08:23)
--- NOTE | 2022-11-10 09:03 | W.PM.PROC2 ---
Procedure Note - Detailed Date of Procedure 11/10/22 Pre-op Diagnosis back pain, lumbar spondylosis Post-op Diagnosis Same Procedure Performed left sided hemilaminotomy and foraminotomies, L4-5 and L5-S1 Surgeon Siobhan Gonzáles MD Anesthesia General Indications Nolvia Stone is a very pleasant 62 year old female who presented to the office with low back and left lower extremity pain and sensory change in the setting of lumbar spondylosis and scoliosis with neuroforaminal stenosis at L4-5 and L5-S1 on the left. She has had temporary but not lasting relief of her symtpoms with non surgical measures. She presents for lumbar decompression at L4-5 and L5-S1 on the left.? We have discussed the risks, indications and recovery from surgery in detail in the office. Plan is for outpatient surgery barring any issues with surgery Description of Procedure The patient was brought into the operating room where general anesthesia was induced.? Appropriate monitoring was obtained.? The patient was turned into a prone position on the Jone table with a Austen frame.? Extremities were padded.? The patient was secured with straps to the table.? Localization was performed using intraoperative fluoroscopy and the? L4-5 and L5-S1 level was identified. The patient's back was prepped and draped sterilely.? A surgical time out was performed.? The planned incision was infused with local anesthetic.? The incision was made using a #10 skin blade.? Hemostasis was achieved. Self retaining retractors were placed and advanced.? The? L4? and L5 spinous process was identified and the muscle was dissected off of the spinous process and lamina of L4 and L5 on the left using bovie electrocautery.? Self retaining retractors were advanced.? A curette was placed under the L4 and L5 lamina and the L4-5 and L5-S1 levels were confirmed again using intraoperative fluoroscopy.? Attention was first turned to the L4-5 level.?? The lamina on the left as well as the medial facet was drilled using a high speed aureliano drill with a matchstick tip until, inferiorly, ligament was visible.? The left aime-lamina was thinned and then dissected from the lamina using a curette.? The remaining lamina and medial facet at L4-5 were removed with kerossen punches.? The ligament was then carefully dissected away from the thecal sac and removed using kerossen punches.? The bony decompression was extended further to the left L4 and L5 neural foramen. ? The foramen at L4 and L5 were drilled and dissected / decompressed using the kerossen punches.?? Attention was then turned to the L5-S1 level.?? The lamina on the left as well as the medial facet was drilled using a high speed aureliano drill with a matchstick tip until, inferiorly, ligament was visible.? The left aime-lamina was thinned and then dissected from the lamina using a curette.? The remaining lamina and medial facet at L5-S1 were removed with kerossen punches.? The ligament was then carefully dissected away from the thecal sac and removed using kerossen punches.? The bony decompression was extended further to the left L5 and S1 neural foramen. ? The foramen at L5 and S1 were drilled and dissected / decompressed using the kerossen punches. At the completion of the decompression the central canal and neural foramen were patent on the right and the left at L5 and S1.? The superior aspect of the L5 lamina was removed using kerossen punches. Subsequently the central canal was patent from L4 through S1. The wound was irrigated and hemostasis was achieved.? Self retaining retractors were removed and the muscle and fascia were closed using interrupted 0 vicryl suture.? The soft tissue was closed using 2-0 vicryl suture. The dermis was closed using 3-0 vicryl suture.? The skin was closed with surgical glue.? Liposomal bupivicaine was placed into the subcutaneous space prior to skin closure. I was present for the entirety of the procedure.? All counts were correct. At the complet
--- NOTE | 2022-11-10 09:55 | SUR.PHASEI ---
0950 - dr. andrade at bedside talking with pt
[2022-11-10] MEDS: fentaNYL CITRATE INJ (*CRX) 100 MCG/2 ML VIAL 25 MCG IV PUSH ×4 (10:01→10:25)
--- NOTE | 2022-11-10 10:33 | SUR.PHASEI ---
1000 - pt's rt upper lip swollen and slightly red
[2022-11-10] MEDS: oxyCODONE HCL (*CRX) 5 MG TAB IR PO (11:48)
== END 2022-11-10 13:05 | disposition home or self-care (01) ==
PROVIDERS: PCP Family Medicine; Visit Provider Neurological Surgery
PROC: (CPT 22612; principal; 2022-11-10 07:30)
DX: M47.816 Spondylosis without myelopathy or radiculopathy, lumbar region (principal)
CPT/HCPCS: 63047; 63048; 99199; A9270; C9290; J0690; J1100; J1170; J2250; J2371; J2405; J2704; J3010; J7120

== ENCOUNTER 2023-01-30 12:23 | Outpatient (CLI) | payer OTHER, SELFPAY ==
--- NOTE | ~2023-01-30 | XR_ITS ---
EXAMINATION: XR lumbar spine 2-3V DATE: 01/30/2023 12:50 INDICATION: Patient status post lumbar spine decompression surgery TECHNIQUE: Anteroposterior and lateral views of the lumbar spine, and cone-down lateral view of the l umbosacral junction were obtained. COMPARISON: 09/20/2022 FINDINGS: There are 15 degrees of lumbar dextrocurvature. Bone alignment is normal. There is no fract ure. There is severe loss of intervertebral disc space height at L4-5 and L5-S1. There is moderate lo ss of disc space height at L3-4. Small degenerative osteophytes project from the anterior endplates o f multiple vertebral bodies. There is moderate facet joint osteoarthritis of lower lumbar spine. A mo derate volume of colonic stool is present. The visualized lung bases are clear. IMPRESSION: 1. Moderate lumbar spondylosis without acute findings or significant interval change. Reviewed, dictated and finalized at location B. IOLOGY TECH IMPRESSION: 1. Moderate lumbar spondylosis without acute findings or significant interval c jeannie.
== END 2023-01-30 12:24 | disposition home or self-care (01) ==
PROVIDERS: PCP Family Medicine; Visit Provider Neurological Surgery
DX: M43.06 Spondylolysis, lumbar region (principal); Z98.890 Other specified postprocedural states
CPT/HCPCS: 72100

== ENCOUNTER 2023-02-05 08:00 | Outpatient (RCR) | payer OTHER, SELFPAY ==
--- NOTE | 2023-01-09 10:47 | OPREHPOC ---
Outpatient Therapy Plan of Care This is a Multidisciplinary Plan of Care that may contain components documented by all disciplines (PT, OT, and ST.) PT Problem 1 PT Problem #1 Knowledge Deficit PT Goal 1 Goal 1* indep with HEP 2* correct posture with HEP & body mechanics with lifting from floor PT Problem 2 PT Problem #2 Pain PT Goal 1 Goal 1* pt report pain rating of 4/10 at worst 2* Oswestry self assessment score of 20% limitation in activity level 3* pt report sit to stand without an increase in pain reported 4* pt report with sleeping, awaken 1x/night due to pain PT Problem 3 PT Problem #3 Impaired Strength PT Goal 1 Goal improve strength of trunk and hips, to improve stability to spine and return to work & home activities: 1* pt perform 20 reps of mat strengthening exercises 2* pt lift with bilateral UE, 20# box from floor/ waist height, 3x PT Problem 4 PT Problem #4 Impaired Flexibility PT Goal 1 Goal 1* increase hamstring length L with SLR to 65'
--- NOTE | 2023-01-09 10:47 | PTOPEVAL1 ---
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, 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, pt care pre and post surgery; Reported Pain Level Pain Score Self Report Additional Pain Score Comments pain range in the past week 3-10/02; lumbar and intermittent into L LE at calf/ankle; Oswestry self assessment rating of 30% limitation in activity increase pain: more activity, end of day, sit> stand decrease pain: ice, ibuprofen at bedtime; gabapentin at bed time; pt report tolerances: sleeping awaken 3-4x/night, reposition due to back pain; sit 30 minutes and then stand up due to more pain with sit to stand; walking is OK--no problems, on land about 1 mile; Assessment PT Clinical Summary Nolvia has the diagnosis of s/p lumbar discectomy. Her history includes chronic back pain and scoliosis. Since surgery, her pain and radicular pain into L LE have decreased. She has been doing aquatic exercises and increased her walking. 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 Self assessment Oswestry rating of 30% limitation in activity level. With the evaluation, she has good flexibility of her hips, except tightness of L hamstring with pain; poor standing position of trunk with scoliosis and sway back posture; weakness of trunk and hips. Skilled PT services are indicated for modalities to decrease pain; ther
--- NOTE | 2023-02-05 09:01 | PTOPDC ---
Assessment and note entered by Della Hill, PT Evaluation Information Assessment Status Discharge Diagnosis s/p Lumbar decompression L 4-5, L5-S1 Onset 11-10-22 Subjective Information feel like back is about the same; only take pain meds at night for sleeping; hope the healing continues and will get better; have been going to the gym-- walking in pool, swimming, work on balance stand one leg, BOSU exercises, leg press 60#; just bought an exercise ball, but not blown it up yet; try not to pick things up off floor; problems squatting and getting on/off floor Reported Pain Level Pain Score Self Report Additional Pain Score Comments pain range in the past week 4-09/02; L ankle no longer tingling, but feels heavy--not always there increase pain: end of day, do too much activity, go from sit to stand; decrease pain: sit/rest. heat or ice; take ibuprofen and gabapentin-- meds for sleeping only; can sleep through night without awakening from pain; Assessment PT Clinical Summary Nolvia has received 9 PT sessions. Compared to the initial evaluation: pain rating from 3-710 to 4-610; self assessment Oswestry functional activity score from 30% to 32% limitation activity; reported sleeping improved - is able to sleep through the night now; sit to/ from stand transfer still increases back pain and she performs with poor stability of lumbar spine; increase flexibility of L hamstring; increase strength of trunk and hips, but still has issues with single leg standing, only few seconds and unstable. education completed for HEP, posture and transfers The goals were partially met. Discharge PT services. She is to continue with her home exercises and going to the fitness center for aquatic and resistance exercises. Plan of Care PT Services Indicated No
== END 2023-02-05 15:01 | disposition home or self-care (01) ==
LOC: ANHPT 08:00
PROVIDERS: PCP Family Medicine; Visit Provider Neurological Surgery
DX: M41.9 Scoliosis, unspecified (principal)
CPT/HCPCS: 97110; 97112; 97161; 97530